=== PATIENT | female | born 1975 | race Caucasian/White ===

== ENCOUNTER → 2018-02-03 12:31 | Outpatient (CLI) | payer OTHER, SELFPAY ==
--- NOTE | 2018-02-03 | DI.US.S_ITS ---
PROCEDURE: US PELVIC COMPLETE INDICATIONS: DYSPAREUNIA PELVIC PAIN AND F/U RIGHT OVARIAN CYST TECHNIQUE: Real-time scanning was performed of the pelvic organs, with image documentation. Additional endovaginal scanning was necessary due to incomplete visualization of the adnexal and endometrial structures by transabdominal scanning. COMPARISON: [facility], , PELVIC COMPLETE, 12/25/2017, 12:21. FINDINGS: Transabdominal scanning: Limited scanning through the kidneys shows no hydronephrosis. No pathologic free abdominal or pelvic fluid. Endovaginal scanning: Uterus: Uterus is normal in size at 4.2 x 6.6 x 11.0 cm. The endometrium measures 14.0 mm in combined thickness. Ovaries: Ovaries bilaterally are normal in size measuring up to 3.7 cm on the right and 3.6 cm on the left. There is a left-sided simple-appearing 2.7 cm maximal dimension simple cyst and a resolving 1.6 cm maximal dimension right ovarian cyst. IMPRESSION: Right ovarian cyst resolving, measuring now only 2.7 cm in maximal dimension. Simple appearing left ovarian cyst is seen, measuring up to 2.7 cm. Normal peritoneal free fluid seen deep within the cul-de-sac. No endometrial lesion found. Dictated by: Hany Phan M.D. on 02/03/2018 at 13:43 Approved by: Hany Phan M.D. on 02/03/2018 at 13:44
== END ==
PROVIDERS: Family Provider Physician Assistant Medical; PCP Physician Assistant Medical; Visit Provider Obstetrics & Gynecology
DX: N94.10 Unspecified dyspareunia (principal); N83.201 Unspecified ovarian cyst, right side
CPT/HCPCS: 76856

== ENCOUNTER → 2022-12-02 08:14 | Outpatient (CLI) | payer OTHER, SELFPAY ==
--- NOTE | 2022-12-02 | DI.MRI.S_ITS ---
BREAST MRI OF BOTH BREASTS: 12/02/2022 CLINICAL: Breast mass/ nipple discharge. Comparison is made to exams dated: 09/27/2021 mammogram, 03/01/2015 mammogram, and 09/27/2021 ultrasound - [facility]. INDICATIONS: BREAST MASS/NIPPLE DISCHARGE TECHNIQUE: The patient was placed prone in a dedicated breast imaging coil. Precontrast axial STIR and 3D FLASH without fat saturation sequences were obtained. Both before and after bolus injection of contrast, sequential 1-minute axial 3D FLASH with fat saturation sequences for 3 time points, with subtraction images and maximum intensity projections (MIP's) generated. Delayed sagittal FLASH images with fat saturation were also obtained. Computer-aided detection, including computer algorithm analysis of MRI image data for lesion detection and characterization, pharmacokinetic analysis, with further physician review for interpretation, was performed. FINDINGS: Image quality: Excellent. There is moderate stippled background parenchymal enhancement. The tissue of both breasts is heterogeneously dense. Right breast: Scattered benign nonenhancing [id number] cysts are present. No suspicious mass or abnormal non-mass enhancement. No internal mammary or axillary lymphadenopathy. Left breast: Scattered benign nonenhancing [id number] cysts are present. No suspicious mass or abnormal non-mass enhancement. No internal mammary or axillary lymphadenopathy. Miscellaneous: The included portions of the anterior chest wall and upper abdomen demonstrate no acute abnormality. IMPRESSION: BENIGN 1. No significant abnormality is seen corresponding to the reported right breast palpable abnormality or nonspontaneous bloody nipple discharge. Recommend clinical correlation and follow up. 2. No MR evidence of malignancy in the right or left breast. No suspicious lymphadenopathy. BIRADS 2: Benign. Recommend annual screening mammograms. COMMENT: The imaging literature indicates that a negative contrast breast MRI examination has a high sensitivity and a moderate specificity for detecting and excluding invasive carcinomas to a detection threshold of 3-5 mm; nonetheless, appropriate clinical and mammographic follow-up are recommended. MRI is not sensitive for detecting DCIS (ductal carcinoma in situ) and may not detect large invasive neoplasms that show only minimal enhancement such as mucinous carcinoma. If there are suspicious calcifications or clinically worrisome palpable masses, then biopsy should still be considered. Invasive neoplasms can be hidden by co-existent and benign enhancement caused by mastitis, hormone therapy effects, radiation therapy, , and recent biopsy or surgery. False positive examinations can occur in a number of circumstances, including breasts that have recently been subject to invasive procedures and those that contain atypical ductal hyperplasia, hormonally stimulated glandular tissue, fat necrosis, or radial scars. A 1 year screening mammogram is recommended. This exam was interpreted at Station ID: [id number]. Electronically Signed By: Benny Astudillo M.D. ar/:12/02/2022 13:38:31 letter sent: Clinical Evaluation ACR BI-RADS Category 2: Benign Finding(s) [id number]
== END ==
PROVIDERS: Family Provider Physician Assistant Medical; PCP Physician Assistant Medical; Referring Provider Nurse Practitioner; Visit Provider Nurse Practitioner
DX: N63.0 Unspecified lump in unspecified breast (principal); N64.52 Nipple discharge
CPT/HCPCS: 77049; A9579

== ENCOUNTER → 2023-03-14 12:10 | Outpatient (CLI) | payer OTHER, MEDICAID, SELFPAY ==
[2023-03-14 14:05] LABS: Urine N gonorrhoeae NOT DETECTED
[2023-03-14 14:18] LABS: Urine Chlamydia NOT DETECTED
== END ==
PROVIDERS: Family Provider Physician Assistant Medical; PCP Physician Assistant Medical; Visit Provider Nurse Practitioner Family
DX: N89.8 Other specified noninflammatory disorders of vagina (principal); L29.0 Pruritus ani
CPT/HCPCS: 81002; 87086; 87210; 87491; 87591

== ENCOUNTER → 2024-02-16 08:17 | Outpatient (CLI) | payer OTHER, SELFPAY ==
--- NOTE | 2024-02-16 08:19 | DI.RAD.S_ITS ---
PROCEDURE: [place] SHOULDER INJECTION MR/CT RT INDICATIONS: PAIN IN RT SHOULDER COMPARISON: None. TECHNIQUE: The indications, alternatives, benefits, risks, and complications of the procedure were explained to the patient. Written informed consent was obtained and placed in the chart. The shoulder was examined fluoroscopically and a site for needle placement chosen for entry into the glenohumeral joint from an anterior approach. The skin was prepped and draped in a sterile fashion, and 1% lidocaine infiltrated from skin down to joint capsule. A spinal needle was inserted into the glenohumeral joint, and a small amount of iodinated contrast media injected to confirm intra-articular placement of the needle tip. This was followed by approximately 12 mL dilute solution of a gadolinium containing MR contrast agent. The needle was removed and a dressing was applied. The patient was given postprocedural instructions and sent to the MR suite for MR imaging. FINDINGS: A single fluoroscopic spot image demonstrates intra-articular location of injected iodinated contrast. Calcifications are seen adjacent to the greater trochanter compatible with calcific tendinopathy. IMPRESSION: 1. Successful fluoroscopically guided administration of dilute Gadolinium solution into the shoulder joint for MR arthrogram. 2. Distal rotator cuff calcific tendinopathy. Approved by: Benny Astudillo M.D. on 02/16/2024 at 10:20
--- NOTE | 2024-02-16 08:19 | DI.MRI.S_ITS ---
PROCEDURE: MR SHOULDER RT W CON INDICATIONS: PAIN IN RT SHOULDER TECHNIQUE: After the administration of 12 mL of dilute intra-articular Gadolinium contrast, oblique coronal T1 and T2 spin echo with fat saturation, oblique sagittal T1 spin echo with and without fat saturation, oblique sagittal T2 fast spin echo with fat saturation, axial T1 spin echo with fat saturation through the shoulder. COMPARISON: [facility], , [place] SHOULDER INJECTION MR/CT RT, 02/16/2024, 7:37. FINDINGS: Image quality: Excellent. Rotator cuff: There is low-grade partial intrasubstance tearing of the supraspinatus tendon at the distal insertion measuring 6 mm in anterior-posterior dimension superimposed on moderate supraspinatus and infraspinatus tendinosis. A hypointense structure at the distal infraspinatus measuring approximately 12 x 4 x 2 mm is most likely a calcification related to calcific tendinopathy is seen on fluoroscopic images from the same day. Teres minor tendon is intact. The subscapularis tendon is also intact. No significant rotator cuff muscle atrophy is seen. Bones and bursae: No acute trabecular bone injury or fracture. Small chronic traction cystic changes are seen in the posterior humeral head. Mild degenerative spurring is seen in the glenoid rim. No focal glenohumeral cartilage defect. Mild to moderate degenerative changes are seen at the acromioclavicular joint. There is a small amount of noncommunicating subacromial/subdeltoid bursal fluid. No intra-articular filling defect in the glenohumeral joint. Capsule and soft tissues: Glenoid labrum is intact. Proximal biceps long head tendon is intact. Glenohumeral ligaments appear to be intact. IMPRESSION: 1. Low-grade partial intrasubstance tearing of the supraspinatus tendon at the distal insertion superimposed on moderate tendinosis. 2. Moderate infraspinatus tendinosis and calcific tendinopathy. 3. Intact biceps long head tendon and labrum. No acute trabecular bone injury. 4. Vyte-ar-xjzzyiuh acromioclavicular joint osteoarthrosis. 5. Small noncommunicating subacromial/subdeltoid bursal effusion or mild bursitis. Approved by: Benny Astudillo M.D. on 02/16/2024 at 14:14
[2024-02-16] MEDS: LIDOCAINE 1% 20 ML INJ (09:15)
[2024-02-16] MEDS: SODIUM CHLORIDE 0.9 % 20 ML VIAL IV (09:16)
== END ==
PROVIDERS: Family Provider Physician Assistant Medical; PCP Nurse Practitioner; Referring Provider Nurse Practitioner; Visit Provider Nurse Practitioner
DX: M75.111 Incomplete rotator cuff tear or rupture of right shoulder, not specified as traumatic (principal); M25.511 Pain in right shoulder; M19.011 Primary osteoarthritis, right shoulder
CPT/HCPCS: 23350; 73040; 73222; A9579; Q9967